=== PATIENT | female | born 1990 | race Caucasian/White ===

== ENCOUNTER 2021-07-22 15:43 | Inpatient (IN) ==
[2021-07-22 16:50] LABS: Bacteria,Urine Moderate /HPF (Few); Bilirubin,Urine Negative (Negative); Blood, Urine Moderate mg/dL (Negative); Glucose,Urine (UA) Negative (Negative); Ketones,Urine Negative (Negative); Nitrite,Urine Negative (Negative); Protein,Urine Negative; RBC,Urine 10 /HPF (0-4); Squamous Epithelial Cell,Urine Occasional /HPF (0-10); Urine Appearance CLEAR (Clear); Urine Color Straw (Yellow); Urine Specific Gravity 1.004 (1.001-1.035); Urine Urobilinogen < 2.0 EU/DL (0.2-1.0)
[2021-07-22] MEDS ORDERED: LACTATED RINGERS 1,000 ML IV SCH (17:00)
[2021-07-22] MEDS ORDERED: PROMETHAZINE 25 MG/1 ML VIAL IM ONE (20:09)
[2021-07-22] MEDS ORDERED: MEPERIDINE 50 MG/1 ML VIAL IV ONE (20:09)
[2021-07-22] MEDS: LACTATED RINGERS 1,000 ML IV SCH (21:57)
[2021-07-22] MEDS ORDERED: LABETALOL 100 MG TABLET ONE (22:07)
[2021-07-22] MEDS: LABETALOL 100 MG TABLET PO SCH (22:12)
[2021-07-23] MEDS ORDERED: AMPICILLIN INJ 1,000 MG in SODIUM CHLORIDE 0.9% 100 ML IV SCH (01:30)
[2021-07-23] MEDS: LACTATED RINGERS 1,000 ML IV SCH (06:28)
[2021-07-23] MEDS ORDERED: ONDANSETRON 4 MG/2 ML VIAL IV PRN ×2 (07:50→21:31)
[2021-07-23] MEDS ORDERED: MEPERIDINE 50 MG/1 ML VIAL IV PRN (07:50)
[2021-07-23] MEDS ORDERED: BUTORPHANOL 2 MG/ML VIAL IV PRN (07:50)
[2021-07-23] MEDS ORDERED: OXYTOCIN/LR 20 UNIT/1,000 ML BAG IV SCH (08:00)
[2021-07-23] MEDS ORDERED: LACTATED RINGERS 1,000 ML IV SCH ×2 (08:00→09:30)
[2021-07-23 08:33] LABS: Basophils % 0.1 % (0.0-0.8); Eosinophils % 0.4 % (0.00-10.9); Hematocrit 26.2 VOL% (35.7-47.0); Hemoglobin 8.1 GM/DL (12.0-16.0); Immature Granulocytes % 0.9 %; Immature Granulocytes Absolute 0.07 #; Lymphocytes # 1.1 10*3/uL (1.4-4.0); Lymphocytes % 13.6 % (21.3-54.2); Mean Corpuscular HGB Conc 30.9 GM/DL (32-36); Mean Corpuscular Volume 77.7 FL (87-102); Mean Platelet Volume 9.7 FL (9.6-12.0); Monocytes % 5.8 % (1.7-12.7); NRBC # 0.03 10*3/uL; Neutrophils % 79.2 % (38.7-73.9); Platelet Count 343 T/CUMM (130-400); Red Blood Count 3.37 MC/CUMM (3.8-5.5); Red Cell Distribution Width 17.4 % (9.3-17.3); White Blood Count 8.2 T/CUMM (4-12)
[2021-07-23 08:47] LABS: INR 0.9; PT Patient Result 10.3 SECS (10.5-12.0); Partial Thromboplastin Time 30.1 SECS (23.9-33.8)
[2021-07-23] MEDS: LABETALOL 100 MG TABLET PO SCH (08:55)
[2021-07-23] MEDS ORDERED: diphenhydrAMINE 50 MG/1 ML VIAL IV PRN ×2 (09:01)
[2021-07-23] MEDS ORDERED: CITRIC ACID/SODIUM CITRATE 30 ML UDCUP PO ONE (09:01)
[2021-07-23] MEDS ORDERED: FAMOTIDINE 20 MG/2 ML VIAL IV ONE (09:01)
[2021-07-23] MEDS ORDERED: LACTATED RINGERS 1,000 ML IV ONE (09:01)
[2021-07-23] MEDS ORDERED: ePHEDrine 50 MG/ML VIAL IV PRN (09:01)
[2021-07-23] MEDS ORDERED: NALOXONE 0.4 MG/ML VIAL IV PRN (09:01)
[2021-07-23 09:03] LABS: Alanine Aminotransferase 14 U/L (13-56); Albumin 1.9 G/DL (3.4-5.0); Alkaline Phosphatase 298 U/L (45-117); Aspartate Amino Transferase 20 U/L (0-37); Bilirubin,Direct < 0.100 MG/DL (0.0-0.20); Bilirubin,Total < 0.39 MG/DL (0.20-1.00); Blood Urea Nitrogen 4 MG/DL (7-18); Calcium 8.2 MG/DL (8.5-10.1); Carbon Dioxide 23 MMOL/L (21-32); Estimated Glom Filtration Rate 166 ML/MIN; Glucose 78 MG/DL (74-106); Osmolality,Calculated 276.3 MOS/KG (273-304); Potassium 3.7 MMOL/L (3.5-5.1); Sodium 141 MMOL/L (136-145); Total Protein 5.7 G/DL (6.4-8.2); Uric Acid 4.9 MG/DL (2.6-6.0)
[2021-07-23] MEDS: fentaNYL 2 MCG/ROPIV 0.2% EPID 100 ML EPIDURAL SCH ×2 (10:08→18:39)
[2021-07-23 10:46] LABS: Hepatitis B Surface Ag Quant < 0.10 Index; Hepatitis B Surface Ag Result Non-Reactive (NonReactive)
[2021-07-23 10:56] LABS: HIV Antigen/Antibody Result Nonreactive (Nonreactive); Rubella Antibody IgG Result Reactive (NonReactive)
[2021-07-23 11:23] LABS: Bacteria,Urine Occasional /HPF (Few); Bilirubin,Urine Negative (Negative); Blood, Urine Negative (Negative); Glucose,Urine (UA) Negative (Negative); Ketones,Urine Negative (Negative); Nitrite,Urine Negative (Negative); Protein,Urine Negative; Urine Appearance CLEAR (Clear); Urine Color Straw (Yellow); Urine Specific Gravity 1.003 (1.001-1.035); Urine Urobilinogen < 2.0 EU/DL (0.2-1.0)
[2021-07-23 11:32] LABS: Protein/Creatinine Ratio,Urine 0.3 RATIO
[2021-07-23] MEDS ORDERED: CARBOPROST TROMETHAMINE 250 MCG/ML AMP IM ONE (18:26)
[2021-07-23] MEDS ORDERED: miSOPROStoL 200 MCG TABLET ONE (18:26)
[2021-07-23] MEDS ORDERED: METHYLERGONOVINE 0.2 MG/1 ML AMP ONE (18:26)
[2021-07-23] MEDS ORDERED: TRANEXAMIC ACID 1,000 MG/10 ML VIAL ONE (18:26)
[2021-07-23] MEDS ORDERED: OXYTOCIN/LR 20 UNIT/1,000 ML BAG IV ONE ×2 (18:26→21:31)
[2021-07-23] MEDS ORDERED: SODIUM CHLORIDE 0.9% 0 ML IV ONE (18:27)
[2021-07-23] MEDS ORDERED: ACETAMINOPHEN 500 MG TABLET PO ONE (19:25)
[2021-07-23] MEDS ORDERED: AMPICILLIN INJ 2,000 MG in SODIUM CHLORIDE 0.9% 100 ML IV ONE (19:25)
[2021-07-23] MEDS ORDERED: AMPICILLIN 2,000 MG VIAL ONE (19:26)
[2021-07-23] MEDS ORDERED: SODIUM CHLORIDE 0.9% 100 ML IV ONE (19:26)
[2021-07-23] MEDS ORDERED: LIDOCAINE 1% 50 ML VIAL ONE (20:47)
[2021-07-23 21:22] LABS: Cord Venous Blood HCO3 22.3 MMOL/L; Cord Venous Blood PCO2 43.1 MMHG; Cord Venous Blood PO2 21.2 MMHG
[2021-07-23] MEDS ORDERED: ACETAMINOPHEN 325 MG TABLET PO PRN (21:31)
[2021-07-23] MEDS ORDERED: BENZOCAINE 20%/MENTHOL 0.5% SPRAY 56 GM CAN TOP PRN (21:31)
[2021-07-23] MEDS ORDERED: HYDROCORTISONE 2.5% RECTAL CREAM 30 GM TUBE TOP PRN (21:31)
[2021-07-23] MEDS ORDERED: LANOLIN 50% CREAM 0.3 OZ TUBE TOP PRN (21:31)
[2021-07-23] MEDS ORDERED: MEASLES/MUMPS/RUBELLA VACCINE 0.5 ML VIAL SUBCUT ONE (21:31)
[2021-07-23] MEDS ORDERED: DIPH/TET/ACEL PERT BOOSTER VACCINE 0.5 ML VIAL IM ONE (21:31)
[2021-07-23] MEDS ORDERED: RHO(D) IMMUNE GLOBULIN 300 MCG SYRINGE IM ONE (21:31)
[2021-07-23] MEDS ORDERED: WITCH HAZEL PADS 100/JAR TOP PRN (21:31)
[2021-07-23] MEDS ORDERED: BISACODYL 10 MG SUPP RECTAL PRN (21:31)
[2021-07-23] MEDS: IBUPROFEN 800 MG TABLET PO PRN (23:12)
[2021-07-24] MEDS: oxyCODONE/ACETAMINOPHEN 5-325 MG TABLET PO PRN ×3 (00:29→16:42)
[2021-07-24] MEDS: AMPICILLIN INJ 1,000 MG in SODIUM CHLORIDE 0.9% 100 ML IV SCH ×4 (01:23→20:30)
[2021-07-24] MEDS: LABETALOL 100 MG TABLET PO SCH (01:48)
[2021-07-24] MEDS ORDERED: AMPICILLIN INJ 1,000 MG in SODIUM CHLORIDE 0.9% 100 ML IV SCH (03:26)
[2021-07-24 06:50] LABS: Basophils # 0.1 10*3/uL (0.0-0.2); Basophils % 0.1 % (0.0-0.8); Eosinophils # 0.1 10*3/uL (0.0-0.87); Eosinophils % 0.1 % (0.00-10.9); Hematocrit 22.3 VOL% (35.7-47.0); Immature Granulocytes % 1.3 %; Immature Granulocytes Absolute 0.48 #; Lymphocytes % 2.8 % (21.3-54.2); Mean Corpuscular Volume 79.9 FL (87-102); Mean Platelet Volume 9.8 FL (9.6-12.0); Monocytes % 3.3 % (1.7-12.7); NRBC # 0.02 10*3/uL; Neutrophils % 92.4 % (38.7-73.9); Platelet Count 301 T/CUMM (130-400); Red Blood Count 2.79 MC/CUMM (3.8-5.5); Red Cell Distribution Width 17.4 % (9.3-17.3)
[2021-07-24 06:52] LABS: Hemoglobin 6.7 GM/DL (12.0-16.0); White Blood Count 37.3 T/CUMM (4-12)
[2021-07-24] MEDS ORDERED: SODIUM CHLORIDE 0.9% 1,000 ML IV PRN (07:07)
[2021-07-24 07:18] LABS: Band Neutrophils 3 % (0-10); Hypochromasia 1+; Lymphocytes 2 % (20-55); Microcytosis 1+; Platelet Estimate Adequate; Segmented Neutrophils 93 % (50-85); Total Cells Counted 100
[2021-07-24] MEDS: IBUPROFEN 800 MG TABLET PO PRN ×2 (07:26→16:41)
[2021-07-24] MEDS: DOCUSATE SODIUM 100 MG CAPSULE PO SCH ×2 (07:26→20:36)
[2021-07-24] MEDS ORDERED: AMPICILLIN 1,000 MG VIAL ONE ×3 (08:31→20:27)
[2021-07-24] MEDS ORDERED: SODIUM CHLORIDE 0.9% 100 ML IV ONE ×3 (08:31→20:30)
[2021-07-24 18:15] LABS: Hematocrit 26.7 VOL% (35.7-47.0); Hemoglobin 8.4 GM/DL (12.0-16.0)
[2021-07-24] MEDS: FERROUS SULFATE 325 MG TABLET PO SCH (20:36)
[2021-07-25] MEDS: oxyCODONE/ACETAMINOPHEN 5-325 MG TABLET PO PRN ×2 (01:34→09:37)
[2021-07-25] MEDS: IBUPROFEN 800 MG TABLET PO PRN (04:17)
[2021-07-25 06:05] LABS: Basophils % 0.1 % (0.0-0.8); Eosinophils % 0.1 % (0.00-10.9); Hematocrit 25.5 VOL% (35.7-47.0); Hemoglobin 7.8 GM/DL (12.0-16.0); Immature Granulocytes % 1.8 %; Immature Granulocytes Absolute 0.59 #; Lymphocytes # 2.1 10*3/uL (1.4-4.0); Lymphocytes % 6.2 % (21.3-54.2); Mean Corpuscular HGB Conc 30.6 GM/DL (32-36); Mean Corpuscular Volume 83.1 FL (87-102); Monocytes % 3.4 % (1.7-12.7); NRBC # 0.05 10*3/uL; Neutrophils % 88.4 % (38.7-73.9); Platelet Count 332 T/CUMM (130-400); Red Blood Count 3.07 MC/CUMM (3.8-5.5); Red Cell Distribution Width 19.4 % (9.3-17.3); White Blood Count 33.2 T/CUMM (4-12)
[2021-07-25 06:24] LABS: Hypochromasia 1+; Microcytosis 1+; Platelet Estimate Adequate
[2021-07-25 09:24] VITALS: BP 110/57
[2021-07-25] MEDS: FERROUS SULFATE 325 MG TABLET PO SCH (09:34)
[2021-07-25] MEDS: DOCUSATE SODIUM 100 MG CAPSULE PO SCH (09:36)
== END 2021-07-25 12:20 | disposition home or self-care (01) | DRG 560 ==
LOC: N.LDOUT 15:43 → N.LD 15:47 → N.OB 07-24 02:21
PROVIDERS: ADMIT Obstetrics & Gynecology; ATTEND Obstetrics & Gynecology